=== PATIENT | female | born 1980 | race Caucasian/White ===

== ENCOUNTER 2016-05-07 17:50 | Emergency (ER) | payer MEDICAID ==
[~2016-05-07] VITALS: Ht 160 cm; Wt 112.0 kg
[~2016-05-07 17:50] MED LIST: CALC-649; FERR27TA; PREN1TAB49
[2016-05-07 17:59] VITALS: Ht 160 cm; Wt 112.0 kg
[2016-05-07] MEDS ORDERED: CYCL-319 PO (19:11)
[2016-05-07] MEDS ORDERED: CETI10CA PO (19:11)
[2016-05-07] MEDS ORDERED: IBUP-1542 PO (19:11)
[2016-05-07] MEDS ORDERED: GUAI473L22 PO (19:12)
[2016-05-07] MEDS ORDERED: ALBU8.5H3 INH (19:13)
--- NOTE | 2016-05-07 19:17 | ERD ---
ER Documentation Chief Complaint Date/Time DATE: 05/07/16 TIME: 19:14 Chief Complaint back pain, fever, cough x4 days HPI 35-year-old female presents here in emergency department for complaints of fever , cough for 4 days, patient has been a dry cough, does not cough up any phlegm or blood. Patient has episodes of wheezing at times. Patient is also complaining of upper back pain, sharp pain, 6/10 scale, is worse upon movement. Patient complains muscle spasms in the back. Patient denies any trauma in the back. Patient denies any palpitations or irregular heartbeat. Patient denies any chest pain. Patient denies any dizziness. Patient took some Tylenol for pain with mild relief. ROS All systems reviewed and are negative except as per history of present illness. Medications Home Meds Active Scripts Albuterol Sulfate* (Proair HFA*) 8.5 Gm Hfa.aer.ad, 2 PUFF INH Q4H Y for WHEEZING AND SOB, #1 INHALER Prov:ILAN WHITE NP 05/07/16 Guaifenesin-Codeine Phosphate* (Guaifenesin* AC Cough Syrup) 473 Ml Liquid, 10 ML PO Q4H Y for COUGH, #120 ML Prov:ILAN WHITE NP 05/07/16 Cetirizine Hcl* (Zyrtec*) 10 Mg Capsule, 10 MG PO DAILY, #30 TAB.CHEW Prov:ILAN WHITE NP 05/07/16 Cyclobenzaprine Hcl* (Cyclobenzaprine Hcl*) 10 Mg Tablet, 10 MG PO TID, #15 TAB Prov:ILAN WHITE NP 05/07/16 Ibuprofen* (Motrin*) 600 Mg Tab, 600 MG PO Q6H Y for PAIN AND OR ELEVATED TEMP, #30 TAB Prov:ILAN WHITE NP 05/07/16 Reported Medications Calcium Carbonate (Calcium) 1 Tab Tablet 06/29/10 Ferrous Sulfate (Iron) 1 Tab Tablet 06/29/10 Vits W-Ca,Fe,Fa(<1MG) () 1 Tab Tablet 06/29/10 Allergies Allergies: Coded Allergies: No Known Allergy (Verified Allergy, Unknown, 10/11/07) PMhx/Soc Medical and Surgical Hx: pt denies Medical Hx, pt denies Surgical Hx FmHx Family History: No coronary disease, No diabetes, No other Physical Exam Vitals Vital Signs Date Time Temp Pulse Resp B/P Pulse Ox O2 Delivery O2 Flow Rate FiO2 05/07/16 17:59 99.2 101 20 120/82 97 Physical Exam GENERAL: The patient is well developed and appropriate for usual state of health, in no apparent distress. CHEST: Clear to auscultation bilaterally. There are no rales, wheezes or rhonchi. HEART: Regular rate and rhythm. No murmurs, clicks, rubs or gallops. No S3 or S4. ABDOMEN: Soft, nontender and nondistended. Good bowel sounds. No rebound or guarding. No gross peritonitis. No gross organomegaly or masses. No Guerra sign or McBurney point tenderness. BACK: No midline or flank tenderness. Muscle spasms noted in the paraspinal aspect of the upper midthoracic spine, able to do full range of motion without any restriction. EXTREMITIES: Equal pulses bilaterally. There is no peripheral clubbing, cyanosis or edema. No focal swelling or erythema. Full range of motion. Grossly neurovascularly intact. NEURO: Alert and oriented. Cranial nerves 2-12 intact. Motor strength in all 4 extremities with 5/5 strength. Sensation grossly intact. Normal speech and gait. SKIN: There is no apparent rash or petechia. The skin is warm and dry. HEMATOLOGIC AND LYMPHATIC: There is no evidence of excessive bruising or lymphedema. No gross cervical, axillary, or inguinal lymphadenopathy. Procedures/MDM Medical Decision Making: Patient symptoms are most likely consistent with acute bronchitis, which viral in origin. There is low suspicion for Pneumonia at this time since patients lungs sounds are clear, patient O2 saturation is normal and patient doesnt show any respiratory distress. Patients chest xray doesnt show infiltrates or any other cardiopulmonary emergencies at this time. There is low suspicion for other cardiopulmonary emergencies at this time such as CHF, Pulmonary Embolism, Pneumothorax, Aortic Aneurysm or any other cardiopulmonary emergencies at this time. There is low suspicion for sepsis. Patient appears well and is hemodynamically stable. Fever is controlled with medicines. Patient back pain other than musculoskeletal pain, no trauma on affected area. No symptoms of aortic dissection. Disposition: Home. Condition: Stable Prescriptions: Flexeril ibuprofen guaifenesin with codeine Zyrtec albuterol Instructions: Patient is advised to take medications as prescribed. Patient is advised to rest. Patient advised to increase fluid intake, do humidifier at home and if possible, do salt water gargles. Patient is advised that if symptoms are worse, shortness of breath, uncontrolled fever, stridor, vomiting, worst signs and symptoms to return to emergency department immediately. Otherwise, patient is advised to follow up with primary doctor in 5-7 days. Departure Diagnosis: Primary Impression: Acute bronchitis Bronchitis organism: unspecified organism Qualified Code: J20.9 - Acute bronchitis, unspecified organism Additional Impression: Back pain Back pain location: thoracic back pain Chronicity: acute Back pain laterality: bilateral Qualified Code: M54.6 - Acute bilateral thoracic back pain Condition: Stable Patient Instructions: Back Pain (Acute Or Chronic), Bronchitis, No Antibiotic ( Adult) ILAN WHITE NP May 07, 2016 19:17
== END 2016-05-07 19:12 | disposition home or self-care (01) ==
LOC: E/R 17:50
DX: J20.9 Acute bronchitis, unspecified (principal); M54.6 Pain in thoracic spine
CPT/HCPCS: 99284

== ENCOUNTER 2018-06-17 09:31 | Emergency (ER) | payer MEDICAID ==
[~2018-06-17] VITALS: Wt 118.0 kg
[~2018-06-17 09:31] MED LIST changes: +ALBU8.5H8 INH; +CETI10CA PO; +CYCL10TA7 PO; +GUAI473L22 PO; +IBUP-1542 PO
[2018-06-17] MEDS ORDERED: HYDROCODONE/APAP (10/325) TAB PO ONE (10:30)
[2018-06-17] MEDS ORDERED: HYDR-4011 PO (13:13)
[2018-06-17] MEDS ORDERED: ONDA4TAB14 PO (13:13)
[2018-06-17 13:38] VITALS: BP 142/82; PULSE 85; RESP 18
--- NOTE | 2018-06-17 23:47 | ERD ---
ER Documentation Chief Complaint Chief Complaint BACK PAIN X 3 WEEKS HPI 37-year-old female patient with past medical history presents the ED complaining of right upper quadrant abdominal pain that started 3 weeks ago as well as right flank pain. Patient rates her pain a 5 out of 10. States she has been taking Tylenol with slight relief. Patient reports that she actually felt like she was twisting her back. Denies any saddle anesthesia, urinary bowel incontinence, fever, chills, nausea, vomiting, diarrhea, neck stiffness. ROS All systems reviewed and are negative except as per history of present illness. Medications Home Meds Active Scripts Ondansetron (Ondansetron Odt) 4 Mg Tab.rapdis, 4 MG PO Q6H PRN for NAUSEA AND/OR VOMITING, #10 TAB Prov:MICHAELLE CARDENAS PA-C 06/17/18 Hydrocodone/Acetaminophen ([place] 5-325 Tablet) 1 Each Tablet, 1 TAB PO Q6H PRN for PAIN, #7 TAB Prov:MICHAELLE CARDENAS PA-C 06/17/18 Albuterol Sulfate* (Proair HFA*) 8.5 Gm Hfa.aer.ad, 2 PUFF INH Q4H PRN for WHEEZING AND SOB, #1 INHALER Prov:ILAN WHITE NP 05/07/16 Guaifenesin-Codeine Phosphate* (Guaifenesin* AC Cough Syrup) 473 Ml Liquid, 10 ML PO Q4H PRN for COUGH, #120 ML Prov:ILAN WHITE NP 05/07/16 Cetirizine Hcl* (Zyrtec*) 10 Mg Capsule, 10 MG PO DAILY, #30 TAB.CHEW Prov:ILAN WHITE NP 05/07/16 Cyclobenzaprine Hcl* (Cyclobenzaprine Hcl*) 10 Mg Tablet, 10 MG PO TID, #15 TAB Prov:ILAN WHITE NP 05/07/16 Ibuprofen* (Motrin*) 600 Mg Tab, 600 MG PO Q6H PRN for PAIN AND OR ELEVATED TEMP, #30 TAB Prov:ILAN WHITE NP 05/07/16 Reported Medications Calcium Carbonate (Calcium) 1 Tab Tablet 06/29/10 Ferrous Sulfate (Iron) 1 Tab Tablet 06/29/10 Vits W-Ca,Fe,Fa(<1MG) () 1 Tab Tablet 06/29/10 Allergies Allergies: Coded Allergies: No Known Allergy (Verified Allergy, Unknown, 10/11/07) PMhx/Soc History of Surgery: No Hx Neurological Disorder: No Hx Respiratory Disorders: No Hx Cardiac Disorders: No Hx Psychiatric Problems: No Hx Miscellaneous Medical Probl: Yes (gall bladder?) Hx Alcohol Use: No Hx Substance Use: No Hx Tobacco Use: No Smoking Status: Never smoker FmHx Family History: No diabetes, No coronary disease Physical Exam Vitals Vital Signs Date Temp Pulse Resp B/P (MAP) Pulse Ox O2 O2 Flow FiO2 Time Delivery Rate 06/17/18 85 18 142/82 97 Room Air 13:38 (102) 06/17/18 98.1 93 18 150/89 99 09:35 (109) Physical Exam Const: [id number], well-nourished. In no acute distress. Head: Atraumatic, normocephalic Eyes: Normal Conjunctiva without injection. No purulent discharge. ENT: Normal external ear, nose. Moist oropharynx without tonsillar exudates. Non-erythematous pharynx. Uvula midline. No drooling. No trismus. Neck: No cervical midline tenderness. Full range of motion. No meningismus. No cervical lymphadenopathy. No JVD. Resp: Clear to auscultation bilaterally. No wheezing, rhonchi, rales, or crackles. No accessory muscle use. No retractions. Cardio: Regular rate and rhythm. No murmurs, rubs or gallops. Abd: Soft, right upper quadrant tenderness, non distended. Normal bowel sounds. No palpable masses. No rebound tenderness. No guarding. Negative McBurney's point. Negative psoas sign. Negative obturator sign. Skin: No petechiae or rashes Back: No midline tenderness. No CVA tenderness. Ext: No cyanosis, or edema. Neur: Awake and alert. Normal gait. Normal coordination. Psych: Normal Mood and Affect Result Diagram: 06/17/18 1018 06/17/18 1018 Results 24 hrs Laboratory Tests Test 06/17/18 10:18 White Blood Count 7.6 10^3/ul Red Blood Count 4.75 10^6/ul Hemoglobin 13.8 g/dl Hematocrit 43.3 % Mean Corpuscular Volume 91.2 fl Mean Corpuscular Hemoglobin 29.1 pg Mean Corpuscular Hemoglobin Concent 31.9 g/dl Red Cell Distribution Width 12.5 % Platelet Count 317 10^3/UL Mean Platelet Volume 10.1 fl Immature Granulocytes % 0.500 % Neutrophils % 57.9 % Lymphocytes % 31.5 % Monocytes % 8.5 % Eosinophils % 0.8 % Basophils % 0.8 % Nucleated Red Blood Cells % 0.0 /100WBC Immature Granulocytes # 0.040 10^3/ul Neutrophils # 4.4 10^3/ul Lymphocytes # 2.4 10^3/ul Monocytes # 0.7 10^3/ul Eosinophils # 0.1 10^3/ul Basophils # 0.1 10^3/ul Nucleated Red Blood Cells # 0.0 10^3/ul Urine Color YELLOW Urine Clarity SLIGHTLY CLOUDY Urine pH 6.0 Urine Specific [place] 1.024 Urine Ketones NEGATIVE mg/dL Urine Nitrite NEGATIVE mg/dL Urine Bilirubin NEGATIVE mg/dL Urine Urobilinogen NEGATIVE mg/dL Urine Leukocyte Esterase NEGATIVE [place]/ul Urine Microscopic RBC 0 /HPF Urine Microscopic WBC 2 /HPF Urine Squamous Epithelial Cells FEW /HPF Urine Hemoglobin NEGATIVE mg/dL Urine Glucose NEGATIVE mg/dL Urine Total Protein NEGATIVE mg/dl Sodium Level 143 mmol/L Potassium Level 4.1 mmol/L Chloride Level 105 mmol/L Carbon Dioxide Level 28 mmol/L Anion Gap 10 Blood Urea Nitrogen 13 mg/dl Creatinine 0.62 mg/dl Est Glomerular Filtrat Rate mL/min > 60 mL/min Glucose Level 97 mg/dl Calcium Level 9.4 mg/dl Total Bilirubin 0.4 mg/dl Direct Bilirubin 0.00 mg/dl Indirect Bilirubin 0.4 mg/dl Aspartate Amino Transf (AST/SGOT) 20 IU/L Alanine Aminotransferase (ALT/SGPT) 24 IU/L Alkaline Phosphatase 69 IU/L Total Protein 7.3 g/dl Albumin 4.2 g/dl Globulin 3.10 g/dl Albumin/Globulin Ratio 1.35 Lipase 144 U/L Current Medications Medications Dose Sig/Murali Start Time Status Last (Trade) Ordered Route PRN Stop Time Admin Dose Reason Admin 1 tab ONCE ONCE 06/17/18 DC 06/17/18 Acetaminophen PO 10:30 10:12 / 4/24/19 10:31 Hydrocodone Bitart (Al[place] ()) Procedures/MDM 37-year-old female patient presents to the ED complaining of right sided back pain, right upper quadrant abdominal pain that started intermittently for the la st 3 weeks. Patient is afebrile and nontoxic-appearing. Patient has a blood pressure of 150/89. Blood Pressure Assessment: Patient's blood pressure was elevated (>120/80) but appears stable without evidence of hypertension emergency or urgency. The patient was counseled about the risks of hypertension and urged to pursue outpatient monitoring and therapy within a week with their primary care physician. Patient was further worked up with CBC, CMP, lipase, UA, gallbladder ultrasound. Patient's pain and symptoms have improved after treatment with [place]. CBC: No leukocytosis. No e/o of systemic infection. No e/o anemia. CMP: No e/o severe acidosis, alkalosis, renal failure, diabetic ketoacidosis, liver disease Lipase within normal limits. Urine: No leukocyte esterase, no nitrites, no hematuria. Urine : Negative IMPRESSION: Mild hepatomegaly with fatty infiltration of the liver. Cholelithiasis. No evidence of gallbladder wall thickening or pericholecystic fluid. Patient has cholelithiasis. No leukocytosis. No transaminitis or elevated bilirubin. Low suspicion for ectopic , ovarian torsion, gastritis, GERD, peptic ulcer disease, cholecystitis, choledocholithiasis, cholangitis, pancreatitis, appendicitis, bowel obstruction, ileus, volvulus, nephrolithiasis, pyelonephritis, hepatitis, perforated viscus, diverticulitis, strangulated/incarcerated hernia, DKA, acute abdomen, mesenteric ischemia or other emergent conditions. Diagnosis: Gallstones Discharge medications: Natalya Monroy Follow up with primary care physician in 1-2 days for referral to see a general surgeon. Instructed patient to return to the ED sooner for any worsening symptoms. Patient's questions were answered. Patient understood and agreed with discharge plan. Patient discharged stable. Departure Diagnosis: Primary Impression: Gallstones Condition: Stable Patient Instructions: Gallstones Referrals: COMMUNITY CLINICS YOU HAVE RECEIVED A MEDICAL SCREENING EXAM AND THE RESULTS INDICATE THAT YOU DO NOT HAVE A CONDITION THAT REQUIRES URGENT TREATMENT IN THE EMERGENCY DEPARTMENT. FURTHER EVALUATION AND TREATMENT OF YOUR CONDITION CAN WAIT UNTIL YOU ARE SEEN IN YOUR DOCTORS OFFICE WITHIN THE NEXT 1-2 DAYS. IT IS YOUR RESPONSIBILITY TO MAKE AN APPOINTMENT FOR LESLIE-UP CARE. IF YOU HAVE A PRIMARY DOCTOR --you should call your primary doctor and schedule an appointment IF YOU DO NOT HAVE A PRIMARY DOCTOR YOU CAN CALL OUR PHYSICIAN REFERRAL HOTLINE AT IF YOU CAN NOT AFFORD TO SEE A PHYSICIAN YOU CAN CHOSE FROM THE FOLLOWING [facility] [address] [facility] [address] [facility] [address] [facility] [address] [facility] [address] [facility]. [facility] [address] [facility]. [facility] YOU HAVE RECEIVED A MEDICAL SCREENING EXAM AND THE RESULTS INDICATE THAT YOU DO NOT HAVE A CONDITION THAT REQUIRES URGENT TREATMENT IN THE EMERGENCY DEPARTMENT. FURTHER EVALUATION AND TREATMENT OF YOUR CONDITION CAN WAIT UNTIL YOU ARE SEEN IN YOUR DOCTORS OFFICE WITHIN THE NEXT 1-2 DAYS. IT IS YOUR RESPONSIBILITY TO MAKE AN APPOINTMENT FOR FOLOW-UP CARE. IF YOU HAVE A PRIMARY DOCTOR --you should call your primary doctor and schedule and appointment IF YOU DO NOT HAVE A PRIMARY DOCTOR YOU CAN CALL OUR PHYSICIAN REFERRAL HOTLINE AT . IF YOU CAN NOT AFFORD TO SEE A PHYSICIAN YOU CAN CHOSE FROM THE FOLLOWING [facility] INSTITUTIONS: [facility] [address] [place] [address] [facility] [address] [place] [address] [facility] [address] [place] [address] [facility] URGENT CARE/SPECIALTIES Additional Instructions: Llame al doctor LUAN y fanta bert LILIAN PARA DENTRO DE 2-3 DINERO para bert derivacin para tushar a un cirujano general para la evaluacin y el tratamiento adicionales.Dgale a la secretaria que nosotros le instruimos hacer esta lilian.Avise o llame si smith condicin se empeora antes de la lilian. Regresa aqui si peor o no mejor. MICHAELLE CARDENAS PA-C Jun 17, 2018 23:47
== END 2018-06-17 13:39 | disposition home or self-care (01) ==
LOC: FTE 09:31
DX: K80.20 Calculus of gallbladder without cholecystitis without obstruction (principal)
CPT/HCPCS: 36415; 76705; 80053; 81001; 83690; 85025; Z7502; Z7610; 81003